=== PATIENT | female | born 1990 | race Caucasian/White ===

== ENCOUNTER 2021-10-05 16:12 | Emergency (ER) | payer MEDICAID, SELFPAY ==
[2021-10-05 16:17] VITALS: BP 163/102; PULSE 112; RESP 16; TEMP 36.6; O2SAT 98
[2021-10-05 16:33] LABS: Bilirubin Negative (Negative); Blood Small (Negative); Clarity Clear (Clear); Glucose Negative (Negative); Ketones Negative (Negative); Leukocyte Esterase Negative (Negative); Nitrite Negative (Negative); Urobilinogen 0.2 EU/dL (Up TO 0.2); pH 5.5 (5-8)
[2021-10-05 16:43] LABS: Bacteria Negative HPF (Negative); C & S Indicated? No; Crystals Negative HPF (Negative); Epithelial Cells Many HPF (Negative); Mucus Trace (Negative); RBC 0-2 HPF (0-2); WBC Negative HPF (0-5)
--- NOTE | 2021-10-05 17:44 | ED.GENADUL_ITS ---
Discharge Plan Disposition Patient Disposition: HOME Condition: Stable Discharge Details Clinical Impression: Abdominal pain Primary Care Provider: Unknown,Unknown ED Provider: Mayi Yang Home Meds and New Rx's Prescriptions: Continued valacyclovir 500 mg Tablet 500 mg PO BID PRN0RF dextroamphetamine-amphetamine [Adderall] 20 mg Tablet 20 mg PO BID 0RF Rx Instructions: administer doses at least 4-6 hours apart Discharge Instructions Instructions: Abdominal Pain (ED) Additional Instructions: Drink plenty of fluids and get plenty of rest. Alternate tylenol and motrin as needed and directed for pain. Call the radiology department tomorrow to schedule an outpatient pelvic ultrasound. Follow-up with your primary care doctor and women's wellness in 1 week. Return to the emergency department with any worsening or new concerning symptoms such as worsening pain, persistent vomiting, fevers or any other concerns. Referrals: [facility] [Provider Group] Discharge Data Discharge Date/Time-TO BE ENTERED AT DEPARTURE: 10/05/21 19:35 Discharge Physician: Mayi Yang Medical Decision Making 31-year-old female with a history of cholecystectomy and genital herpes on valacyclovir as needed presents for lower abdominal pain with radiation to her vagina for the last 2 days. Heart rate and blood pressure elevated on arrival. She is afebrile and appears comfortable and nontoxic. She is mildly tender to palpation in the suprapubic region mostly but some in the right lower and left lower quadrant. There is no rigidity or guarding. No upper abdominal tenderness. She has no complaint of vaginal discharge, does not appear consistent with STD. Ovarian cyst is a consideration but her pain does not pain as severe to be consistent with torsion. Patient states she does not want a CAT scan. Discussed other possibilities of pain can include appendicitis, diverticulitis and that CAT scan would be recommended. Patient would rather proceed with IV, lab work and pain medication I would like to hold on CT at this time. Called radiology and no ultrasound available this evening. Labs reviewed. White blood cell count 14. Potassium 3.2. AST 96. ALT 170. Urinalysis negative for infection. Patient reassessed and her pain is unchanged. She is declining any further medication. Discussed with patient that as her white blood cell count is elevated, and ultrasound unavailable, would recommend to proceed with CT for further evaluation but she is declining and states she does not want any radiation. Also discussed obtaining a pelvic exam but she declines. Also offered Bentyl but she declines. Patient was also offered a medication to help her with sleep overnight if needed but she declines. Discussed with patient that I do not see an indication for narcotic pain medication at this time without having a formal diagnosis and she is agreeable. Patient is pleasant and states she feels comfortable going home and will plan to return if her symptoms worsen. An outpatient order for pelvic ultrasound placed. Advised to alternate Tylenol and Motrin, increase fluids and rest. Advised to follow up with the primary care doctor and women's wellness for re- evaluation. Usual and customary return precautions given prior to discharge. Medical Records Medical records reviewed: Yes I reviewed the patient's medical records. Lab Data Lab results reviewed: Yes I reviewed the patient's lab results. Labs: Laboratory Tests Range/Units 10/05/21 10/05/21 10/05/21 16:27 17:15 17:15 WBC Cancelled RBC Cancelled Hgb Cancelled Hct Cancelled MCV Cancelled MCH Cancelled MCHC Cancelled RDW Cancelled Plt Count Cancelled MPV Cancelled Immature Gran % Cancelled Neutrophils % Cancelled Band Neutrophils % Cancelled Lymphocytes % Cancelled Atypical Lymphs % Cancelled Monocytes % Cancelled Eosinophils % Cancelled Basophils % Cancelled Metamyelocytes % Cancelled Myelocytes % Cancelled Promyelocytes % Cancelled Other Cells % Cancelled Nucleated RBC % Cancelled Absolute Neutrophils Cancelled Absolute Lymphocytes Cancelled Absolute Monocytes Cancelled Absolute Eosinophils Cancelled Absolute Basophils Cancelled RBC Morphology Cancelled Polychromasia Cancelled Hypochromasia Cancelled Poikilocytosis Cancelled Basophilic Stippling Cancelled Anisocytosis Cancelled Microcytosis Cancelled Macrocytosis Cancelled Spherocytes Cancelled Tear Drop Cells Cancelled Ovalocytes Cancelled Stomatocytes Cancelled [place] Bodies Cancelled Blu Cells/Echinocytes Cancelled Acanthocytes (Spur) Cancelled Schistocytes Cancelled Sodium Cancelled Potassium Cancelled Chloride Cancelled Carbon Dioxide Cancelled Anion Gap Cancelled BUN Cancelled Creatinine Cancelled Estimated GFR/1.73 m2 Cancelled Glucose Cancelled Calcium Cancelled Total Bilirubin Cancelled AST Cancelled ALT Cancelled Alkaline Phosphatase Cancelled Total Protein Cancelled Albumin Cancelled Urine Color (Yellow) Yellow Urine Clarity (Clear) Clear Urine pH (5-8) 5.5 Ur Specific [place] (1.005-1.025) 1.010 Urine Protein (Negative) mg/dL Negative Urine Ketones (Negative) mg/dL Negative Urine Blood (Negative) Small H Urine Nitrite (Negative) Negative Urine Bilirubin (Negative) Negative Urine Urobilinogen (Up TO 0.2) EU/dL 0.2 Ur Leukocyte Esterase (Negative) Negative Urine RBC (0-2) HPF 0-2 Urine WBC (0-5) HPF Negative Ur Epithelial Cells (Negative) HPF Many Urine Crystals (Negative) HPF Negative Urine Bacteria (Negative) HPF Negative Urine Mucus (Negative) Trace Ur Culture Indicated? No Urine Glucose (Negative) mg/dL Negative Range/Units 10/05/21 10/05/21 18:10 18:10 WBC 14.23 H RBC 5.01 Hgb 14.5 Hct 44.4 MCV 88.6 MCH 28.9 MCHC 32.7 RDW 12.8 Plt Count 302 MPV 9.7 Immature Gran % 0.0 Neutrophils % 58.0 Band Neutrophils % Lymphocytes % 33.0 Atypical Lymphs % 4 Monocytes % 3.0 Eosinophils % 2.0 Basophils % 0.0 Metamyelocytes % Myelocytes % Promyelocytes % Other Cells % Nucleated RBC % 0 Absolute Neutrophils 8.25 H Absolute Lymphocytes 5.27 H Absolute Monocytes 0.43 Absolute Eosinophils 0.28 Absolute Basophils 0.00 RBC Morphology Normal Polychromasia Hypochromasia Poikilocytosis Basophilic Stippling Anisocytosis Microcytosis Macrocytosis Spherocytes Tear Drop Cells Ovalocytes Stomatocytes [place] Bodies Blu Cells/Echinocytes Acanthocytes (Spur) Schistocytes Sodium 138 Potassium 3.2 L Chloride 103 Carbon Dioxide 26.0 Anion Gap 9.0 BUN 7 Creatinine 0.6 Estimated GFR/1.73 m2 >= 60.00 Glucose 84 Calcium 9.1 Total Bilirubin 0.4 AST 96 H ALT 170 H Alkaline Phosphatase 111 Total Protein 8.0 Albumin 3.9 Urine Color (Yellow) Urine Clarity (Clear) Urine pH (5-8) Ur Specific [place] (1.005-1.025) Urine Protein (Negative) mg/dL Urine Ketones (Negative) mg/dL Urine Blood (Negative) Urine Nitrite (Negative) Urine Bilirubin (Negative) Urine Urobilinogen (Up TO 0.2) EU/dL Ur Leukocyte Esterase (Negative) Urine RBC (0-2) HPF Urine WBC (0-5) HPF Ur Epithelial Cells (Negative) HPF Urine Crystals (Negative) HPF Urine Bacteria (Negative) HPF Urine Mucus (Negative) Ur Culture Indicated? Urine Glucose (Negative) mg/dL HPI General Mode of arrival: ambulatory . Date/Time Provider Initiated Documentation: 10/05/21 16:21 . Limitations to Documentation: no limitations . Information obtained by: patient . HPI Narrative: Patient is a 31-year-old female with a history of cholecystectomy presents with lower abdominal pain for the past 2 days. She describes the pain is constant dull and achy pain with occasional sharp pain. She states the pain radiates down to within her vagina. She admits to occasional nausea but denies any fever, vomiting, urinary symptoms, diarrhea or known injury. She took Advil earlier today with some relief. She states the pain is currently 5/10. She states the pain is 7/10 at its worst. She states she is sexually active with her and does not use protection but denies any known exposure to STDs, genital lesions, vaginal discharge, or known . Related Data Home Medications Medication Instructions Recorded Confirmed dextroamphetamine-amphetamine 20 20 mg PO BID 10/05/21 10/06/21 mg tablet (Adderall) valacyclovir 500 mg tablet 500 mg PO BID PRN 10/05/21 10/06/21 Allergies Allergy/AdvReac Type Severity Reaction Status Date / Time acetaminophen [From Vicodin] AdvReac Unverified 10/06/21 15:08 hydrocodone [From Vicodin] AdvReac Unverified 10/06/21 15:08 General Stated Complaint: Abd Prob SUGEY: 3 Review of Systems All systems reviewed & are unremarkable except as noted in HPI and below Constitutional Constitutional: Reports as per HPI, Denies chills and Denies fever(s) Eyes Eyes: Denies blurry vision ENT Ears, Nose, Mouth, and Throat: Denies dizziness, Denies sore throat and Denies throat swelling Cardiovascular Cardiovascular: Denies chest pain and Denies dyspnea Respiratory Respiratory: Denies cough and Denies dyspnea Gastrointestinal Gastrointestinal: Reports abdominal pain, Denies diarrhea, Reports nausea and Denies vomiting Genitourinary Genitourinary: Denies hematuria and Denies dysuria Musculoskeletal Musculoskeletal: Denies back pain and Denies numbness Integumentary/Breasts Skin/Breast: Denies lesions and Denies rash Neurologic Neurologic: Denies dizziness, Denies localized weakness and Denies numbness Allergic/Immunologic Allergic/Immunologic: Denies throat swelling PFSH All Active Problems (Updated 10/06/21 @ 15:51 by Cas Hagen MD) Abdominal pain (Acute) Suprapubic discomfort (Acute) Ovarian cyst (Acute) Medical History (Updated 10/06/21 @ 15:51 by Cas Hagen MD) Genital herpes Surgical History (Updated 10/05/21 @ 18:43 by Mayi Yang DO) Hx of cholecystectomy Social History Smoking/Tobacco Use Status: Current every day Tobacco Type: cigarettes Smoking risk assessment performed?: Yes Alcohol Intake: never Drug use: Never Substance use type: does not use Do you feel safe at home: Yes Do you feel safe in your relationship?: Yes Exam Const General: cooperative, healthy appearing and no acute distress Orientation: alert, awake and oriented x3 HENMT Head: normal to inspection Ears: hearing grossly normal bilaterally Eyes General: appearance normal, both eyes and all related structures Neck Neck: normal visual inspection Resp Effort & Inspection: normal respiratory effort and able to speak in complete sentences Auscultation: clear to auscultation bilaterally Cardio Rate: regular rate Rhythm: regular rhythm GI Inspection: normal to inspection and obesity Palpation: soft, not firm, no guarding, not rigid and tender in the LLQ, in the RLQ and suprapubicly (greater than in RLQ/LLQ) Auscultation: hypoactive bowel sounds Back/Spine/Pelvis Back: no CVA tenderness Skin General skin exam: no rashes or lesions noted Neuro General: patient alert, patient awake and patient oriented x3 Motor: muscle tone normal throughout Extrem General: normal to inspection and full ROM Psych Appearance: grossly normal Affect: normal affect Course Vital Signs Vital signs: Vital Signs Temperature 97.9 F 10/05/21 16:17 Pulse 112 H 10/05/21 16:17 Respiratory Rate 16 10/05/21 16:17 Blood Pressure 163/102 H 10/05/21 16:17 Pulse Oximetry 98 10/05/21 16:17 Temperature 97.9 F 10/05/21 16:17 Temperature Source Temporal Artery Scan 10/05/21 16:17 Pulse 112 H 10/05/21 16:17 Respiratory Rate 16 10/05/21 16:17 Respiratory Effort Non-Labored 10/05/21 16:19 Blood Pressure 163/102 H 10/05/21 16:17 Blood Pressure Position Sitting 10/05/21 16:17 Pulse Oximetry 98 10/05/21 16:17 Oxygen Delivery Method Room Air 10/05/21 16:17 Oxygen Flow Rate 0 10/05/21 16:17 Pain Level 8 10/05/21 16:17 Lab/Test Results Lab/Test Results: Laboratory Tests Range/Units 10/05/21 10/05/21 10/05/21 16:27 17:15 17:15 WBC Cancelled RBC Cancelled Hgb Cancelled Hct Cancelled MCV Cancelled MCH Cancelled MCHC Cancelled RDW Cancelled Plt Count Cancelled MPV Cancelled Immature Gran % Cancelled Neutrophils % Cancelled Band Neutrophils % Cancelled Lymphocytes % Cancelled Atypical Lymphs % Cancelled Monocytes % Cancelled Eosinophils % Cancelled Basophils % Cancelled Metamyelocytes % Cancelled Myelocytes % Cancelled Promyelocytes % Cancelled Other Cells % Cancelled Nucleated RBC % Cancelled Absolute Neutrophils Cancelled Absolute Lymphocytes Cancelled Absolute Monocytes Cancelled Absolute Eosinophils Cancelled Absolute Basophils Cancelled RBC Morphology Cancelled Polychromasia Cancelled Hypochromasia Cancelled Poikilocytosis Cancelled Basophilic Stippling Cancelled Anisocytosis Cancelled Microcytosis Cancelled Macrocytosis Cancelled Spherocytes Cancelled Tear Drop Cells Cancelled Ovalocytes Cancelled Stomatocytes Cancelled [place] Bodies Cancelled [place] Cells/Echinocytes Cancelled Acanthocytes (Spur) Cancelled Schistocytes Cancelled Sodium Cancelled Potassium Cancelled Chloride Cancelled Carbon Dioxide Cancelled Anion Gap Cancelled BUN Cancelled Creatinine Cancelled Estimated GFR/1.73 m2 Cancelled Glucose Cancelled Calcium Cancelled Total Bilirubin Cancelled AST Cancelled ALT Cancelled Alkaline Phosphatase Cancelled Total Protein Cancelled Albumin Cancelled Urine Color (Yellow) Yellow Urine Clarity (Clear) Clear Urine pH (5-8) 5.5 Ur Specific [place] (1.005-1.025) 1.010 Urine Protein (Negative) mg/dL Negative Urine Ketones (Negative) mg/dL Negative Urine Blood (Negative) Small H Urine Nitrite (Negative) Negative Urine Bilirubin (Negative) Negative Urine Urobilinogen (Up TO 0.2) EU/dL 0.2 Ur Leukocyte Esterase (Negative) Negative Urine RBC (0-2) HPF 0-2 Urine WBC (0-5) HPF Negative Ur Epithelial Cells (Negative) HPF Many Urine Crystals (Negative) HPF Negative Urine Bacteria (Negative) HPF Negative Urine Mucus (Negative) Trace Ur Culture Indicated? No Urine Glucose (Negative) mg/dL Negative POC- Test(urine) Negative
[2021-10-05 18:14] LABS: Abs Immature Grans 0.04 10^3/uL (0.0-0.06); HCT 44.4 % (36.0-46.0); HGB 14.5 g/dL (11.2-15.7); MCH 28.9 pg (27.0-33.0); MCHC 32.7 % (32.0-36.0); MCV 88.6 fL (80-95); MPV 9.7 fL (8.0-11.0); Nucleated RBC 0 %; Platelet Count 302 10^3/uL (130-400); RBC 5.01 10^6/uL (3.93-5.22); RDW 12.8 % (11.7-14.6); RDW-SD 41.4 fL; WBC 14.23 10^3/uL (4.4-10.8)
[2021-10-05] MEDS: Normal Saline 1,000 ML 1000 ML IV (18:15)
[2021-10-05] MEDS: Ketorolac 30 MG/ML VIAL IVP (18:16)
[2021-10-05 18:30] LABS: ALT 170 U/L (14-59); AST 96 U/L (15-37); Albumin 3.9 g/dL (3.4-5.0); Alkaline Phosphatase 111 U/L (46-116); BUN 7 mg/dL (7-18); Bilirubin, Total 0.4 mg/dL (0.2-1.0); CREATININE 0.6 mg/dL (0.55-1.02); Calcium 9.1 mg/dL (8.5-10.1); Chloride 103 mmol/L (98-107); Glucose 84 mg/dL (74-106); Potassium 3.2 mmol/L (3.5-5.1); Sodium 138 mmol/L (136-145)
[2021-10-05 18:45] LABS: Absolute Lymphocyte Count 5.27 10^3/uL (1.2-3.4); Absolute Neutrophil Count 8.25 10^3/uL (1.2-6.7); Atypical Lymphocytes % 4
[2021-10-05 18:46] LABS: Absolute Eosinophil Count 0.28 10^3/uL (0.0-0.7); Absolute Monocyte Count 0.43 10^3/uL (0.1-0.8); Diff Comment Manual Differential; RBC Morphology Normal
[2021-10-05 19:09] VITALS: BP 124/87; PULSE 92; RESP 14; TEMP 36.6; O2SAT 98
--- NOTE | 2021-10-05 19:16 | NUR.NOTE ---
Faxed requisition to [facility] for pelvic ultrasound. Lower abd/vaginal pain. Prep sheet given, told patient to call [phone] to schedule appt. Nursing Note:
[2021-10-05] MEDS: Potassium Chloride 20 MEQ TABCR 40 MEQ PO (19:17)
== END 2021-10-05 19:35 | disposition home or self-care (01) ==
PROVIDERS: Emergency Provider Physician Assistant
DX: R10.31 Right lower quadrant pain (principal); R10.2 Pelvic and perineal pain; R10.32 Left lower quadrant pain
CPT/HCPCS: 36415; 80053; 81025; 96361; 96374; 99284; 81003; 81015; 85025; 99283; J1885

== ENCOUNTER 2021-10-06 14:58 | Emergency (ER) | payer MEDICAID, SELFPAY ==
[2021-10-06 15:05] VITALS: BP 150/93; PULSE 103; RESP 16; TEMP 36.5; O2SAT 97
--- NOTE | 2021-10-06 15:42 | W.ED.GENAD ---
Discharge Plan Disposition Patient Disposition: HOME Condition: Stable Discharge Details Clinical Impression: Suprapubic discomfort, Ovarian cyst Primary Care Provider: Unknown,Unknown ED Provider: Cas Hagne Home Meds and New Rx's Prescriptions: Continued valacyclovir 500 mg Tablet 500 mg PO BID PRN0RF dextroamphetamine-amphetamine [Adderall] 20 mg Tablet 20 mg PO BID 0RF Rx Instructions: administer doses at least 4-6 hours apart Discharge Instructions Instructions: Ovarian Cyst (ED) Additional Instructions: Please follow-up with [facility] referral as scheduled, return to the emergency department for worsening symptomatology Medical Decision Making 31-year-old female presents with persistent suprapubic discomfort over the past several days, denies vaginal bleeding discharge or lesions, denies new sexual partners, denies nausea or vomiting or GI symptomatology. 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 Encouraged patient to follow-up with [facility] referral to OB provided, given strict return precautions for worsening symptoms. Consider symptomatic cyst versus pelvic pathology such as cervical lesion versus infection less likely versus less likely UTI given negative urine yesterday, [id number] test was ordered as I cannot see it in the system however she was negative yesterday and is negative today for . Currently stable nontoxic. HPI General Date/Time Provider Initiated Documentation: 10/06/21 15:20. HPI Narrative: 31-year-old female history of genital herpes presents with suprapubic discomfort over the past several days, denies vaginal bleeding or discharge denies vaginal lesions, is on valacyclovir as needed for breakthrough lesions, no new sexual partners, last period was last month, was seen here yesterday and evaluated for abdominal discomfort refused pelvic examination and did not want to proceed with CT scan or further testing however was amenable to ultrasound, here today requesting results of her pelvic ultrasound, denies worsening symptomatology at this time but persistent suprapubic pressure, patient Dors that she is in a [place] and 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 Related Data Home Medications Medication Instructions Recorded Confirmed dextroamphetamine-amphetamine 20 20 mg PO BID 10/05/21 10/06/21 mg tablet (Adderall) valacyclovir 500 mg tablet 500 mg PO BID PRN 10/05/21 10/06/21 Allergies Allergy/AdvReac Type Severity Reaction Status Date / Time acetaminophen [From Vicodin] AdvReac Unverified 10/06/21 15:08 hydrocodone [From Vicodin] AdvReac Unverified 10/06/21 15:08 General Stated Complaint: Recheck SUGEY: 5 Review of Systems Narrative: Review of Systems Constitutional: negative Eyes: negative ENT: negative Cardiovascular: negative Respiratory: negative Gastrointestinal: negative : Suprapubic pain Musculoskeletal: negative Skin: negative Neurologic: negative Psych: negative PFSH All Active Problems (Updated 10/06/21 @ 15:51 by Cas Hagen MD) Abdominal pain (Acute) Suprapubic discomfort (Acute) Ovarian cyst (Acute) Medical History (Updated 10/06/21 @ 15:51 by Cas Hagen MD) Genital herpes Surgical History (Updated 10/05/21 @ 18:43 by Mayi Yang DO) Hx of cholecystectomy Social History Smoking/Tobacco Use Status: Current every day Tobacco Type: cigarettes Smoking risk assessment performed?: Yes Alcohol Intake: never Drug use: Never Substance use type: does not use Do you feel safe at home: Yes Do you feel safe in your relationship?: Yes Exam Narrative Exam Narrative: Physical Examination General: alert, awake, cooperative, resting comfortably, no acute distress HEENT: normocephalic, atraumatic; PERRL, EOM intact, conjunctiva normal; no nasal discharge; moist mucous membranes, oral and pharyngeal mucosa normal, tolerating secretions Neck: supple, trachea midline; full ROM Chest: normal to inspection Respiratory: normal respiratory effort, speaking in full sentences, clear to auscultation, no wheezing, rales or rhonchi Cardiac: regular rate, regular rhythm, S1S2 intact, no murmurs rubs or gallops GI: abdomen soft, non-tender, non-distended; no palpable mass or hepatosplenomegaly : Patient deferred exam, nonperitoneal Skin: no lesions, rashes or trauma appreciated Neuro: AAOx3, normal speech, moving all extremities Psych: Appropriate mood and affect Course Vital Signs Vital signs: Vital Signs Temperature 36.5 C 10/06/21 15:05 Pulse 103 H 10/06/21 15:05 Respiratory Rate 16 10/06/21 15:05 Blood Pressure 150/93 H 10/06/21 15:05 Pulse Oximetry 97 10/06/21 15:05 Temperature 36.5 C 10/06/21 15:05 Temperature Source Skin 10/06/21 15:05 Pulse 103 H 10/06/21 15:05 Respiratory Rate 16 10/06/21 15:05 Respiratory Effort 10/06/21 15:05 Blood Pressure 150/93 H 10/06/21 15:05 Blood Pressure Position Sitting 10/06/21 15:05 Pulse Oximetry 97 10/06/21 15:05 Oxygen Delivery Method Room Air 10/06/21 15:05 Oxygen Flow Rate 0 10/06/21 15:05 Pain Level 1 10/06/21 15:05
--- NOTE | 2021-10-06 16:56 | NUR.NOTE ---
Referral faxed to [facility] for follow up of left ovarian cyst this week. Referral given to Care management to establish care/ routine follow up with a new PCP. Nereyda Martínez Nursing Note:
--- NOTE | 2021-10-07 13:47 | CMACTNOTE_ITS ---
- If Service Date Differs Date of service: 10/07/21 Time of Service: 13:47 Care Management Activity Note Edward is seen in the ED for suprapubic discomfort. The ED provider requests that CM help Edward establish care with a PCP. A telephone conversation with Edward reveals that she is already established with ISAI Hernandez, at [facility] in [place], [place].
== END 2021-10-06 16:01 | disposition home or self-care (01) ==
PROVIDERS: Emergency Provider Emergency Medicine; PCP Nurse Practitioner Family
DX: R10.30 Lower abdominal pain, unspecified (principal); N83.292 Other ovarian cyst, left side
CPT/HCPCS: 81025; 99281

== ENCOUNTER 2021-10-06 19:05 | Outpatient (CLI) | payer MEDICAID, SELFPAY ==
--- NOTE | 2021-10-06 | DI.US_ITS ---
Exam(s) US PELVIS TRANSVAGINAL EXAM: US PELVIS TRANSVAGINAL CLINICAL HISTORY: LOW ABD AND VAGINAL PAIN TECHNIQUE: Ultrasound of the pelvis was performed both transabdominal and transvaginal. COMPARISON: No exams were available for comparison FINDINGS: UTERUS: Measures 8.6 cm length x 4.5 cm AP x 5 point cm wide. There are no uterine fibroids. Endometrial thickness measures 11 mm. There is no fluid in the endometrial canal. CERVIX: There is small nabothian cysts noted. RIGHT OVARY: Measures 2.8 x 2.5 x 2.4 cm Appears [id number] LEFT OVARY: Measures 4.6 x 3.8 x 3.4 cm Contains 2 cystic structures. The larger measures 3 x 2.4 x 2.3 cm. The other measures 2.4 x 1.8 x 1.7 cm. Contains a thin septation. Vascular flow is demonstrated in both ovaries. CUL-DE-SAC: No free fluid evident. IMPRESSION: 1. Normal appearing uterus and age-appropriate endometrium. 2. No significant findings in the right ovary. 3. Cystic structures in the left ovary described above, 1 exhibiting septations therein. Recommend r epeat transvaginal ultrasound 3 months, earlier if clinically indicated. 4. There is no free fluid DATA REPOSITORY:
== END 2021-10-06 19:25 ==
PROVIDERS: Visit Provider Physician Assistant
DX: R10.32 Left lower quadrant pain (principal); R10.2 Pelvic and perineal pain; N83.292 Other ovarian cyst, left side
CPT/HCPCS: 76830; 76856

== ENCOUNTER 2021-10-22 18:28 | Outpatient (REF) | payer MEDICAID, SELFPAY ==
[2021-10-24 15:26] LABS: Chlamydia Result Negative (Negative); GC Result Negative (Negative)
== END 2021-10-22 18:29 | disposition home or self-care (01) ==
LOC: LBN 18:28
PROVIDERS: PCP Nurse Practitioner Family; Visit Provider Obstetrics & Gynecology
DX: R10.9 Unspecified abdominal pain (principal); R10.2 Pelvic and perineal pain; Z11.3 Encounter for screening for infections with a predominantly sexual mode of transmission
CPT/HCPCS: 87491; 87591; 87480; 87510; 87660

== ENCOUNTER 2021-11-27 01:05 | Outpatient (CLI) | payer MEDICAID, SELFPAY ==
--- NOTE | 2021-11-27 08:00 | DI.US_ITS ---
Exam(s) US PELVIS TRANSVAGINAL EXAM: US PELVIS TRANSVAGINAL CLINICAL HISTORY: re-check ovarian cyst,n83.209. TECHNIQUE: Transabdominal and transvaginal pelvic ultrasound was performed using standard protocol. COMPARISON: US US PELVIS TRANSVAGINAL from 10/06/2021 FINDINGS: KIDNEYS: Kidneys are symmetric in size. No evidence of renal calculi. No evidence of hydronephrosis. No renal mass or cyst identified. UTERUS: Position: Anteverted. Size: 6.2 long by 4.7 AP by 5.3 transverse cm Endometrium: 1.0 cm. Normal for patient's menstrual status. Myometrium: Unremarkable. Cervix: Cervical nabothian cysts. OVARIES: Right: 2.9 x 2.5 x 2.1 cm Cyst or mass: No suspicious cystic or solid masses. Left: 2.9 x 2.4 x 2.2 cm Cyst or mass: The previously noted cysts have resolved. Small follicular functional cysts are presen t. The largest measures 3.6 mm. DOPPLER: Color: Symmetric and uniform flow to both ovaries. No hyperemia. Duplex: Normal ovarian arterial waveforms visualized. CUL-DE-SAC: Free fluid: None. Other: None. IMPRESSION: 1. Normal sonographic appearance of the kidneys. 2. Normal-appearing uterus with endometrial stripe within normal limits. 3. Resolution of the left ovarian cysts. Unremarkable bilateral ovaries. DATA REPOSITORY:
== END 2021-11-27 01:25 ==
PROVIDERS: PCP Nurse Practitioner Family; Visit Provider Obstetrics & Gynecology
DX: N83.292 Other ovarian cyst, left side (principal)
CPT/HCPCS: 76830; 76856

== ENCOUNTER 2022-05-22 02:03 | Outpatient (CLI) | payer MEDICAID, SELFPAY ==
[2022-05-22 11:35] LABS: Abs Immature Grans 0.04 10^3/uL (0.0-0.06); Absolute Basophil Count 0.06 10^3/uL (0.0-0.2); Absolute Eosinophil Count 0.18 10^3/uL (0.0-0.7); Absolute Lymphocyte Count 3.37 10^3/uL (1.2-3.4); Absolute Monocyte Count 0.59 10^3/uL (0.1-0.8); Basophils % 0.5; Eosinophils % 1.5; HCT 45.2 % (36.0-46.0); HGB 15.2 g/dL (11.2-15.7); Immature Grans % 0.3; MCH 29.5 pg (27.0-33.0); MCHC 33.6 % (32.0-36.0); MCV 88 fL (80-95); MPV 9.9 fL (8.0-11.0); Monocytes % 4.9; Neutrophils % 64.8; Platelet Count 301 10^3/uL (130-400); RBC 5.16 10^6/uL (3.93-5.22); RDW 13.1 % (11.7-14.6); RDW-SD 41.8 fL; WBC 12.02 10^3/uL (4.4-10.8)
[2022-05-22 11:36] LABS: Absolute Neutrophil Count 7.79 10^3/uL (1.2-6.7)
[2022-05-22 12:11] LABS: ALT 180 U/L (14-59); AST 98 U/L (15-37); Albumin 3.9 g/dL (3.4-5.0); Alkaline Phosphatase 129 U/L (46-116); Anion Gap 9.2 mmol/L (3-11); BUN 6 mg/dL (7-18); Bilirubin, Total 0.3 mg/dL (0.2-1.0); CO2 27.8 mmol/L (21.0-32.0); CREATININE 0.7 mg/dL (0.55-1.02); Calcium 9.3 mg/dL (8.5-10.1); Chloride 104 mmol/L (98-107); Estimated GFR 116.31 (mL/min/1.73m2); Glucose 92 mg/dL (74-106); Potassium 3.2 mmol/L (3.5-5.1); Sodium 141 mmol/L (136-145); Total Protein 7.9 g/dL (6.4-8.2)
[2022-05-22 12:20] LABS: HCG Quant, Pregnancy 1 mIU/mL (1-3)
[2022-05-22 23:36] LABS: LH 9.7 mIU/mL (See Note); Prolactin 4.1 ng/mL (See Note)
== END 2022-05-22 02:04 | disposition home or self-care (01) ==
LOC: LBO 02:03
PROVIDERS: Advanced Practice Midwife; PCP Nurse Practitioner Family; Visit Provider Obstetrics & Gynecology
DX: N92.6 Irregular menstruation, unspecified (principal)
CPT/HCPCS: 36415; 80053; 83001; 83002; 84146; 84443; 84702; 85025

== ENCOUNTER → 2022-06-12 00:38 | Outpatient (CLI) | payer MEDICAID, SELFPAY ==
--- NOTE | 2022-06-12 07:45 | DI.US_ITS ---
Exam(s) US PELVIS TRANSVAGINAL EXAM: US PELVIS TRANSVAGINAL CLINICAL HISTORY: anatomy,missed menses, n92.6 TECHNIQUE: Ultrasound of the pelvis was performed both transabdominal and transvaginal. COMPARISON: US US PELVIS TRANSVAGINAL from 11/27/2021 FINDINGS: UTERUS: Nongravid and anteverted Measures 9.2 cm length x 4.8 cm AP x 6 cm wide. There are no uterine fibroids. Endometrial thickness measures 8-9 mm. There is no fluid in the endometrial canal. CERVIX: Small nabothian cyst in the upper cervix noted. RIGHT OVARY: Measures 3 x 1.7 x 1.8 cm No significant cysts nor masses evident in the right ovary. LEFT OVARY: Measures 3 x 2.3 x 2.5 cm Contains a 1.8 x 1.5 cm structure which has the appearance of a probable corpus luteal cyst. CUL-DE-SAC: No free fluid evident. IMPRESSION: 1. Normal appearing uterus and age-appropriate endometrium. 2. Probable corpus luteal cyst in the left ovary measuring 18 x 15 millimeters. No other adnexal fin dings. 3. No free fluid evident in the adnexal regions and cul-de-sac. DATA REPOSITORY:
== END ==
PROVIDERS: PCP Nurse Practitioner Family; Visit Provider Obstetrics & Gynecology
DX: N92.6 Irregular menstruation, unspecified (principal); N88.8 Other specified noninflammatory disorders of cervix uteri
CPT/HCPCS: 76830; 76856

== ENCOUNTER 2022-09-17 17:08 | Emergency (ER) | payer MEDICAID, SELFPAY ==
[2022-09-17 17:12] VITALS: BP 151/93; PULSE 94; RESP 18; TEMP 36.9; O2SAT 97
--- NOTE | 2022-09-17 17:30 | DI.CT_ITS ---
Exam(s) CT ABDOMEN PELVIS WO EXAM: CT ABDOMEN PELVIS WO CLINICAL HISTORY: left flank pain. TECHNIQUE: Imaging Protocol: Axial computed tomography images with coronal and sagittal reformatted images were created and reviewed. COMPARISON: US US PELVIS TRANSVAGINAL from 11/27/2021 FINDINGS: ABDOMEN: Lung Bases: Normal where visualized. Liver: There is decreased attenuation of the liver. The liver measures 22.5 cm long. No measurable mass. Gallbladder and biliary tract: Status post cholecystectomy. No significant biliary ductal dilatation . Pancreas: Normal density, no abnormal calcifications or inflammatory process. Spleen: The spleen is at the upper limits of normal in size. Kidneys: Normal size, contour and axis.No radiodense stones or obstructive uropathy. No masses seen. Adrenal glands: No mass is seen. Lymph nodes: Within normal limits. Abdominal Aorta: Abdominal portion non-dilated. PELVIS: Bladder:Symmetric distention, no gross wall thickening. Bowel: No obstruction or bowel wall thickening. No evidence of appendicitis. Peritoneal cavity: No ascites, collection or mesenteric inflammatory response. No free air. Reproductive organs: Unremarkable as visualized. Bones: Within normal limits. Soft Tissues: Within normal limits. IMPRESSION: 1. No acute abdominal pelvic process. 2. No evidence of nephrolithiasis or hydronephrosis. RADIATION DOSE DELIVERED: 1,191.33mGy.cm Total DLP DATA REPOSITORY: All CT scans at this facility are submitted to the National Radiology Data Registry (NRDR) Dose Index Registry (DIR) with the [employer] ([employer]). RADIATION OPTIMIZATION: All CT scans at this facility use at least one of these dose optimization te chniques: automated exposure control; mA and/or kV adjustment per patient size (includes targeted exa ms where dose is matched to clinical indication); or iterative reconstruction.
[2022-09-17] MEDS: Lactated Ringers 1,000 ML 1000 ML IV (17:35)
[2022-09-17] MEDS: Ondansetron 4 MG/2 ML VIAL IVP (17:35)
[2022-09-17 17:45] LABS: Abs Immature Grans 0.05 10^3/uL (0.0-0.06); Absolute Basophil Count 0.05 10^3/uL (0.0-0.2); Absolute Eosinophil Count 0.28 10^3/uL (0.0-0.7); Absolute Lymphocyte Count 4.32 10^3/uL (1.2-3.4); Absolute Neutrophil Count 7.77 10^3/uL (1.2-6.7); Basophils % 0.4; Eosinophils % 2.1; HCT 44.3 % (36.0-46.0); HGB 14.5 g/dL (11.2-15.7); Immature Grans % 0.4; Lymphocytes % 32.9; MCH 28.5 pg (27.0-33.0); MCHC 32.7 % (32.0-36.0); MCV 87 fL (80-95); MPV 9.8 fL (8.0-11.0); Neutrophils % 59.2; Platelet Count 350 10^3/uL (130-400); RBC 5.09 10^6/uL (3.93-5.22); WBC 13.12 10^3/uL (4.4-10.8)
[2022-09-17 17:48] LABS: Absolute Monocyte Count 0.66 10^3/uL (0.1-0.8)
[2022-09-17 18:06] LABS: Bilirubin Negative (Negative); Blood Trace-intact (Negative); Clarity Clear (Clear); Glucose Negative (Negative); Ketones Trace mg/dL (Negative); Leukocyte Esterase Negative (Negative); Nitrite Negative (Negative); Urobilinogen 0.2 EU/dL (Up TO 0.2); pH 7.5 (5-8)
[2022-09-17 18:07] LABS: ALT 195 U/L (14-59); AST 101 U/L (15-37); Albumin 3.9 g/dL (3.4-5.0); Alkaline Phosphatase 146 U/L (46-116); Anion Gap 8.3 mmol/L (3-11); BUN 5 mg/dL (7-18); Bilirubin, Total 0.4 mg/dL (0.2-1.0); CO2 29.7 mmol/L (21.0-32.0); CREATININE 0.7 mg/dL (0.55-1.02); Calcium 9.7 mg/dL (8.5-10.1); Chloride 102 mmol/L (98-107); Estimated GFR 116.31 (mL/min/1.73m2); Glucose 89 mg/dL (74-106); Lipase 109 U/L (73-393); Potassium 3.3 mmol/L (3.5-5.1); Sodium 140 mmol/L (136-145); Total Protein 7.9 g/dL (6.4-8.2)
[2022-09-17 18:14] LABS: Bacteria Negative HPF (Negative); C & S Indicated? No; Casts Negative LPF (Negative); Crystals Negative HPF (Negative); Epithelial Cells Rare HPF (Negative); Mucus Negative (Negative); Other Cells Negative (Negative); RBC 0-2 HPF (0-2); WBC 0-2 HPF (0-5)
--- NOTE | 2022-09-17 19:05 | DI.VRAD_ITS ---
PROCEDURE INFORMATION: Exam: CT Abdomen And Pelvis Without Contrast Exam date and time: 09/17/2022 18:51 Age: 32 years old Clinical indication: Other: Left flank pain; Prior surgery; Surgery date: 6+ months; Additional info: PT has had gallbladder surg TECHNIQUE: Imaging protocol: Computed tomography of the abdomen and pelvis without contrast. COMPARISON: US PELVIS TRANSVAGINAL 06/12/2022 12:01 FINDINGS: Liver: No hepatic masses on noncontrast imaging. Hepatomegaly. Gallbladder and bile ducts: Cholecystectomy. No significant biliary dilation or radiopaque stones in the biliary tree. Pancreas: No gross pathology in the pancreas on noncontrast imaging. Spleen: Mild splenomegaly. Adrenal glands: No mass. Kidneys and ureters: No hydronephrosis. Stomach and bowel: A few scattered colonic diverticula without inflammation. No colitis. No gross pathology in the small bowel without IV contrast. Appendix: Normal morphology of the appendix. Intraperitoneal space: No free air. No significant fluid collection. Vasculature: No abdominal aortic aneurysm. Lymph nodes: No significantly enlarged lymph nodes. Urinary bladder: Unremarkable as visualized. Reproductive: Unremarkable as visualized. Bones/joints: No acute fracture. Soft tissues: No suspicious lesions. IMPRESSION: 1. No acute findings on noncontrast imaging. 2. Incidental findings as described. Dictated and Authenticated by: Monica Bermudez MD. Ordering:DEISY Servin MD
[2022-09-17 20:11] VITALS: BP 150/90; PULSE 86; RESP 20; O2SAT 97
--- NOTE | 2022-09-17 20:15 | DI.RAD_ITS ---
Exam(s) XR CHEST 2V PA LATERAL EXAM: XR CHEST 2V PA LATERAL CLINICAL HISTORY: left upper quadrant pain TECHNIQUE: 2D digital imaging was performed of the chest. Two images were obtained. PA and lateral views were obtained. COMPARISON: No exams were available for comparison FINDINGS: MEDIASTINUM: Normal. HEART: Normal. PULMONARY VASCULATURE: Normal. LUNGS: Clear. PLEURAL SPACE: No pleural effusion or pneumothorax. BONE:Within normal limits for the patient's age. OTHER FINDINGS:Normal. IMPRESSION: No acute pulmonary findings. DATA REPOSITORY: RADIATION DOSE DELIVERED:
[2022-09-17] MEDS: Acetaminophen 325 MG TAB 650 MG PO (20:23)
[2022-09-17] MEDS: Ketorolac 15 MG/ML VIAL IVP (20:23)
--- NOTE | 2022-09-17 20:40 | DI.VRAD_ITS ---
PROCEDURE INFORMATION: Exam: XR Chest Exam date and time: 09/17/2022 20:35 Age: 32 years old Clinical indication: Left-sided and other: Left upper quadrant pain TECHNIQUE: Imaging protocol: Radiologic exam of the chest. Views: 2 views. COMPARISON: CT ABDOMEN PELVIS WO 09/17/2022 18:51 FINDINGS: Lungs: No consolidation. Pleural spaces: No pleural effusion. No pneumothorax. Heart/Mediastinum: No cardiomegaly. Bones/joints: No acute fracture. Intraperitoneal space: Right upper quadrant clips, probable cholecystectomy. IMPRESSION: No acute cardiopulmonary pathology. Dictated and Authenticated by: Monica Bermudez MD. Ordering:DEISY Servin MD
[2022-09-17] MEDS: diazePAM 5 MG TAB PO (21:34)
[2022-09-17 21:36] VITALS: BP 148/98; PULSE 85; RESP 20; TEMP 36.5; O2SAT 97
--- NOTE | 2022-09-20 10:13 | W.ED.GENAD ---
Discharge Plan Disposition Patient Disposition: Home Condition: Stable Discharge Details Clinical Impression: Back pain Primary Care Provider: Cristian Park ED Provider: Malathi Wang Home Meds and New Rx's Prescriptions: New diazepam [Valium] 5 mg tablet 5 mg PO TID PRNQty: 6 0RF Continued labetalol 200 mg tablet 200 mg PO BID metformin 500 mg tablet 500 mg PO BID Qty: 120 3RF valacyclovir 500 mg Tablet 500 mg PO BID PRN dextroamphetamine-amphetamine [Adderall] 20 mg Tablet 20 mg PO BID Rx Instructions: administer doses at least 4-6 hours apart Discharge Instructions Instructions: Back Pain (ED) Additional Instructions: Please follow-up with your primary care physician Take ibuprofen 600 mg every 8 hours with food Take Tylenol 650 mg every 4-[address] for 8 hours after taking Valium as it will make you drowsy and it can be addictive, do not combine with alcohol Light stretching, no lifting greater than 5 pounds for the next several days Stand Alone Forms: Work Release Referrals: Cristian Park [Primary Care Provider] - 1 day Discharge Data Discharge Date/Time-TO BE ENTERED AT DEPARTURE: 09/17/22 21:40 Medical Decision Making This 32-year-old female presents with left sided back pain, secondary to blood in urine and clinical exam findings, CTA was ordered which does not show evidence of acute abnormality, patient made aware Chest x-ray does not show evidence of infiltrate Patient placed on muscle relaxants and will take ibuprofen and Tylenol as needed for pain Encouraged to follow-up with primary care physician No indication for emergent MRI, neurovascularly intact 3-day recheck recommended Return precautions reviewed and patient expressed understanding No clinical exam findings consistent with cauda equina syndrome Medical Records Medical records reviewed: Yes I reviewed the patient's medical records. Lab Data Lab results reviewed: Yes I reviewed the patient's lab results. HPI General Date/Time Provider Initiated Documentation: 09/17/22 17:18. HPI Narrative: This 32-year-old female presents with left flank pain which started 3 days ago. Denies any injuries. Denies any strength or sensation change. Denies any blood in urine. Denies any urinary symptoms. States she was seen at [facility] and evaluated with blood work and discharged home with back pain. States the pain has been persistent. Denies any fever or chills. Denies history of similar symptoms in the past. Denies any radiational symptoms or history of illicit drug use. Denies any chance of . Denies any current numbness or tingling. Denies urinary frequency or retention or incontinence of bowel or bladder. Related Data Home Medications Medication Instructions Recorded Confirmed dextroamphetamine-amphetamine 20 20 mg PO BID 10/05/21 09/17/22 mg tablet (Adderall) valacyclovir 500 mg tablet 500 mg PO BID PRN 10/05/21 09/17/22 labetalol 200 mg tablet 200 mg PO BID 06/19/22 09/17/22 metformin 500 mg tablet 500 mg PO BID #120 tabs 06/19/22 09/17/22 diazepam 5 mg tablet (Valium) 5 mg PO TID PRN #6 tabs 09/17/22 Previous Rx's Medication Instructions Recorded metformin 500 mg tablet 500 mg PO BID #120 tabs 06/19/22 diazepam 5 mg tablet (Valium) 5 mg PO TID PRN #6 tabs 09/17/22 Allergies Allergy/AdvReac Type Severity Reaction Status Date / Time hydrocodone [From Vicodin] AdvReac Unverified 09/17/22 17:29 General Stated Complaint: FlankPain SUGEY: 3 Review of Systems All systems reviewed & are unremarkable except as noted in HPI and below PFSH All Active Problems (Updated 09/17/22 @ 21:25 by ALLAN Ngo) Back pain (Acute) PCOS (polycystic ovarian syndrome) (Acute) Oligomenorrhea (Acute) Hypertension (Chronic) Obesity (Chronic) Elevated liver enzymes (Acute) Missed menses (Acute) Bacterial vaginosis (Acute) Pelvic pain (Acute) Medical History Genital herpes Surgical History History of open reduction and internal fixation (ORIF) procedure 2012 ORIF left Tib Fib Hx of cholecystectomy Social History Smoking/Tobacco Use Status: Current every day Tobacco Type: cigarettes Smoking risk assessment performed?: Yes Alcohol Intake: never Drug use: Never Substance use type: does not use Do you feel safe at home: Yes Do you feel safe in your relationship?: Yes History History 4 Para 2 Hx # Term Pregnancies 1 Multiple births Hx # Pregnancies 1 Ectopic pregnancies AB induced Hx Number of Living Children 2 AB spontaneous 2 Past Pregnancies Del. Date GA/Weeks # Preg Succ Route Wgt Sex Labor Lgth Anesthesia Location Prov Complic 06/21/13 9 No No 07/01/14 37 No Yes vaginal 2920.001 g Male 12 [facility] 11/08/15 36 No Yes vaginal 2834.952 g Female 18 [facility] other 11/18/16 9 No No Delivery Date: 06/21/13 Last Updated by: Tatyana Alexander CNM [place] Delivery Date: 07/01/14 Last Updated by: Tatyana Alexander CNM [facility] Delivery Date: 11/08/15 Last Updated by: Tatyana Alexander CNM [facility] / Induced for oligohydramnios Exam Narrative Exam Narrative: Patient with tenderness on left mid axillary line and left CVA region , No visible sign of trauma Neurovascularly intact No abdominal tenderness, distal pulses intact, no crepitus , No abdominal bruit or pulsatile mass Rate rhythm regular, lungs clear to auscultation Course Vital Signs Vital signs: Vital Signs Temperature 36.9 C 09/17/22 17:12 Pulse 94 H 09/17/22 17:12 Respiratory Rate 18 09/17/22 17:12 Blood Pressure 151/93 H 09/17/22 17:12 Pulse Oximetry 97 09/17/22 17:12 Temperature 36.5 C 09/17/22 21:36 Temperature Source Temporal Artery Scan 09/17/22 17:12 Pulse 85 09/17/22 21:36 Respiratory Rate 20 09/17/22 21:36 Respiratory Effort 09/17/22 17:17 Blood Pressure 148/98 H 09/17/22 21:36 Blood Pressure Position Supine 09/17/22 17:12 Pulse Oximetry 97 09/17/22 21:36 Oxygen Delivery Method Room Air 09/17/22 20:11 Oxygen Flow Rate 0 09/17/22 20:11 Pain Level 8 09/17/22 17:12 Lab/Test Results Lab/Test Results: Laboratory Tests Range/Units 09/17/22 09/17/22 09/17/22 17:38 17:38 18:00 WBC (4.4-10.8) 10^3/uL 13.12 H RBC (3.93-5.22) 10^6/uL 5.09 Hgb (11.2-15.7) g/dL 14.5 Hct (36.0-46.0) % 44.3 MCV (80-95) fL 87 MCH (27.0-33.0) pg 28.5 MCHC (32.0-36.0) % 32.7 RDW (11.7-14.6) % 13.0 Plt Count (130-400) 10^3/uL 350 MPV (8.0-11.0) fL 9.8 Immature Gran % 0.4 Neutrophils % 59.2 Lymphocytes % 32.9 Monocytes % 5.0 Eosinophils % 2.1 Basophils % 0.4 Nucleated RBC % (0.0-0.3) % 0.0 Absolute Neutrophils (1.2-6.7) 10^3/uL 7.77 H Absolute Lymphocytes (1.2-3.4) 10^3/uL 4.32 H Absolute Monocytes (0.1-0.8) 10^3/uL 0.66 Absolute Eosinophils (0.0-0.7) 10^3/uL 0.28 Absolute Basophils (0.0-0.2) 10^3/uL 0.05 Sodium (136-145) mmol/L 140 Potassium (3.5-5.1) mmol/L 3.3 L Chloride (98-107) mmol/L 102 Carbon Dioxide (21.0-32.0) mmol/L 29.7 Anion Gap (3-11) mmol/L 8.3 BUN (7-18) mg/dL 5 L Creatinine (0.55-1.02) mg/dL 0.7 Est GFR (CKD-EPI 2020) (mL/min/1.73m2) 116.31 Glucose (74-106) mg/dL 89 Calcium (8.5-10.1) mg/dL 9.7 Total Bilirubin (0.2-1.0) mg/dL 0.4 AST (15-37) U/L 101 H ALT (14-59) U/L 195 H Alkaline Phosphatase (46-116) U/L 146 H Total Protein (6.4-8.2) g/dL 7.9 Albumin (3.4-5.0) g/dL 3.9 Lipase (73-393) U/L 109 Urine Color (Yellow) Yellow Urine Clarity (Clear) Clear Urine pH (5-8) 7.5 Ur Specific [place] (1.005-1.025) 1.020 Urine Protein (Negative) mg/dL Negative Urine Ketones (Negative) mg/dL Trace H Urine Blood (Negative) Trace-intact H Urine Nitrite (Negative) Negative Urine Bilirubin (Negative) Negative Urine Urobilinogen (Up TO 0.2) EU/dL 0.2 Ur Leukocyte Esterase (Negative) Negative Urine RBC (0-2) HPF 0-2 Urine WBC (0-5) HPF 0-2 Ur Epithelial Cells (Negative) HPF Rare Urine Crystals (Negative) HPF Negative Urine Bacteria (Negative) HPF Negative Urine Casts (Negative) LPF Negative Urine Mucus (Negative) Negative Urine Other (Negative) Negative Ur Culture Indicated? No Urine Glucose (Negative) mg/dL Negative POC- Test(urine) Negative
== END 2022-09-17 21:40 | disposition home or self-care (01) ==
PROVIDERS: Emergency Provider Physician Assistant; PCP Registered Nurse
DX: M54.9 Dorsalgia, unspecified (principal); R31.9 Hematuria, unspecified
CPT/HCPCS: 80053; 81025; 83690; 96361; 96374; 96375; 99284; 71046; 74176; 81003; 81015; 85025; J1885; J2405